=== PATIENT | female | born 1950 | race Caucasian/White ===

== ENCOUNTER → 2020-03-02 10:07 | Outpatient (BNVA) | payer MEDICARE, SELFPAY | PROVIDERS: PCP Family Medicine; Referring Provider Family Medicine; Visit Provider Physician Assistant | DX: D50.9 Iron deficiency anemia, unspecified (principal); Z12.11 Encounter for screening for malignant neoplasm of colon; Z79.82 Long term (current) use of aspirin | CPT/HCPCS: Q3014 ==

== ENCOUNTER 2020-11-18 13:37 | Outpatient (REF) | payer MEDICARE, SELFPAY ==
--- NOTE | ~2020-11-18 | MM_ITS ---
EXAMINATION: BONE DENSITOMETRY CLINICAL INDICATION: Osteoporosis. COMPARISON: Baseline BD dated 07/02/2018. TECHNIQUE: Using a [employer] DXA System (software version: 13.1) manufactured by [employer], dual-energy x-ray absorptiometry was performed of the 07/02/2018. The images are of good technical quality. Summary results are attached. FINDINGS: AP SPINE L1-L2 (excluding L3 and L4): The data of L1-L4 has been changed to exclude the L3 and L4 vertebral bodies, because degenerative sclerosis at these levels may cause overestimation of lumbar spine density. Current: BMD 1.470 g/cm2, Z-score 3.1, T-score 2.5, normal, 5.5% increase from baseline (<5% change is not significant). Baseline: BMD 1.394 g/cm2. LEFT FEMUR, NECK: Current: BMD 1.619 g/cm2, Z-score 5.2, T-score 4.2, normal. Baseline: BMD 1.269 g/cm2. LEFT FEMUR, TOTAL: Current: BMD 1.488 g/cm2, Z-score 4.6, T-score 3.8, normal, 0.9% increase from baseline (<5% change is not significant). Baseline: BMD 1.474 g/cm2. IDENTIFIED RISK FACTORS: Recurrent falls, low calcium intake, menopause. HISTORY OF FRACTURE: None listed. MEDICATIONS: Calcium supplements or multivitamin, vitamin D. MM/XR DEXA axial skeleton IMPRESSION: 1. DIAGNOSIS: Normal bone density based on the lowest T-score value of 2.5 in the lumbar spine applying World Health Organization criteria. 2. 10-YEAR FRACTURE RISK PREDICTION, FRAX: According to the guidelines, FRAX calculation should only be performed on patients in the osteopenia bone density category. Therefore, FRAX was not performed on this patient. 3. Treatment Recommendations: NOF guidelines recommend consideration for treatment in postmenopausal women and men age 50 and older presenting with the following: -A hip or vertebral (clinical or morphometric) fracture. -T-score less than or equal to -2.5 at the femoral neck or spine after appropriate evaluation to exclude secondary causes. -Low bone mass at the hip or spine and a 10-year fracture probability by FRAX of greater than or equal to 3% for hip fracture or greater than or equal to 20% for major osteoporotic fracture based on the [place] adapted WHO algorithm. 4. Other Recommendations: All treatment decisions require clinical judgment and consideration of individual patient factors, including patient preferences, comorbidities, previous drug use, risk factors not captured in the FRAX model (e.g. frailty, falls, vitamin D deficiency, increased bone turnover, interval significant decline in bone density) and possible under or overestimation of fracture risk by FRAX. FUTURE SCAN RECOMMENDATION: People with diagnosed cases of osteoporosis or at high risk for fracture should have regular bone mineral density tests. For patients eligible for Medicare, routine testing is allowed once every 2 years. The testing frequency can be increased to one year for patients who have rapidly progressing disease, those who are receiving or discontinuing medical therapy to restore bone mass, or have additional risk factors.
--- NOTE | ~2020-11-18 | MM_ITS ---
EXAMINATION: MM SCREENING DIGITAL BREAST TOMOSYNTHESIS, BILATERAL CLINICAL INFORMATION: Screening. Asymptomatic. The lifetime risk of breast cancer based on the Tyrer-Cuzick Model is 3%. COMPARISON: Mammography: 07/10/2018, 01/31/2017 TECHNIQUE: Digital breast tomosynthesis is performed in both the craniocaudal and mediolateral oblique views along with computer-aided detection (CAD). Synthesized 2D images are generated from the tomosynthesis. FINDINGS: There are scattered areas of fibroglandular density (ACR BI-RADS breast composition Category b). There is no interval mass or architectural abnormality or developing density. There are scattered bilateral isolated and small groups of punctate round calcifications. Axillary nodes are stable. The skin contours are smooth. There are no significant changes from prior studies. MM/MM tomosynthesis screening BI IMPRESSION: No mammographic evidence of malignancy. ASSESSMENT: BI-RADS 2: Benign RECOMMENDATION: Routine annual mammography screening. This patient's information was entered into a reminder system with a target due date for their next mammogram.
== END 2020-11-18 13:38 | disposition home or self-care (01) ==
LOC: HO.MAMMO 13:37
PROVIDERS: Visit Provider Internal Medicine
DX: Z12.31 Encounter for screening mammogram for malignant neoplasm of breast (principal); Z13.820 Encounter for screening for osteoporosis; E58 Dietary calcium deficiency; Z91.81 History of falling; Z78.0 Asymptomatic menopausal state
CPT/HCPCS: 77063; 77067; 77080

== ENCOUNTER 2022-01-05 13:42 | Outpatient (REF) | payer MEDICARE, SELFPAY ==
--- NOTE | ~2022-01-05 | MR_ITS ---
EXAMINATION: MR LUMBAR SPINE WITHOUT CONTRAST CLINICAL INFORMATION: Low back pain with sciatica. COMPARISON: Lumbar spine MRI 10/15/2017. TECHNIQUE: MRI of the lumbar spine was obtained using routine sequences without contrast. FINDINGS: There is slight grade 1 anterolisthesis of L4 on L5. Alignment is otherwise normal. Vertebral heights are preserved. No acute bone marrow signal changes. There is disc desiccation at multiple levels without substantial loss of intervertebral disc height. The tip of the conus medullaris is located at L1-L2. No mass effect on the conus. Visualized distal cord signal intensity is normal. At L1-L2 the annular contour is normal. No canal stenosis. No mass effect on the traversing or foraminal nerve roots. At L2-L3 the annular contour is normal. Mild bilateral facet degenerative change. No canal stenosis. No mass effect on the traversing or foraminal nerve roots. At L3-L4 there is a slightly bulging disc. Bilateral facet degenerative change. Mild canal stenosis. No mass effect on the traversing or foraminal nerve roots. At L4-L5 there is a pseudodisc bulge. Advanced bilateral facet degenerative change. Moderate canal stenosis. Subarticular zone narrowing causes abutment of both traversing L5 nerve roots. No foraminal nerve root compression. At L5-S1 there is a slightly bulging disc. Advanced bilateral facet degenerative change. No canal stenosis. The mass effect on the left L5 foraminal nerve root. Limited visualization of the retroperitoneal anatomy reveals no abnormal finding. Psoas and paraspinal muscle groups are symmetric. MR/MR lumbar spine wo con IMPRESSION: Lumbar spine with slight grade 1 anterolisthesis of L4 on L5 related to advanced facet degenerative changes at this level. Moderate canal stenosis at L4-L5 and mild canal stenosis at L3-L4. A bulging disc in conjunction with facet degenerative change at L5-S1 causes moderate compression of the left L5 foraminal nerve roots. There is also subarticular zone narrowing at the level of L4-L5 causing abutment of both traversing L5 nerve roots.
== END 2022-01-05 13:43 | disposition home or self-care (01) ==
LOC: HO.MRI 13:42
PROVIDERS: Visit Provider Internal Medicine
DX: M54.41 Lumbago with sciatica, right side (principal)
CPT/HCPCS: 72148

== ENCOUNTER 2022-12-26 13:40 | Outpatient (REF) | payer OTHER, SELFPAY ==
--- NOTE | ~2022-12-26 | MM_ITS ---
EXAMINATION: MM SCREENING DIGITAL BREAST TOMOSYNTHESIS, BILATERAL CLINICAL INFORMATION: Screening. Asymptomatic. COMPARISON: Mammography: This study is compared with prior exams dating back to 2017. TECHNIQUE: Digital breast tomosynthesis is performed in both the craniocaudal and mediolateral oblique views along with computer-aided detection (CAD). Synthesized 2D images are generated from the tomosynthesis. FINDINGS: The breasts are almost entirely fatty (ACR BI-RADS breast composition Category a). There are no significant masses, abnormal calcifications, or other abnormalities. MM/MM tomosynthesis screening BI IMPRESSION: No mammographic evidence of malignancy. ASSESSMENT: BI-RADS BI-RADS 1 - Negative RECOMMENDATION: Routine annual mammography screening. 1 year F/U This examination should not preclude the clinical evaluation of a suspicious palpable abnormality. This patient's information was entered into a reminder system with a target due date for their next mammogram.
== END 2022-12-26 13:41 | disposition home or self-care (01) ==
LOC: HO.MAMMO 13:40
PROVIDERS: PCP Internal Medicine; Visit Provider Internal Medicine
DX: Z12.31 Encounter for screening mammogram for malignant neoplasm of breast (principal)
CPT/HCPCS: 77063; 77067

== ENCOUNTER → 2022-12-26 13:45 | Outpatient (BNV) | payer OTHER, SELFPAY | PROVIDERS: PCP Internal Medicine; Visit Provider Radiology Diagnostic Radiology | DX: Z12.31 Encounter for screening mammogram for malignant neoplasm of breast (principal) | CPT/HCPCS: 77063; 77067 ==

== ENCOUNTER 2023-02-20 09:09 | Outpatient (REF) | payer OTHER, SELFPAY ==
[2023-02-20 15:17] LABS: Alanine Aminotransferase 16 U/L (0-31); Albumin Level 3.8 g/dL (3.5-5.0); Alkaline Phosphatase 76 U/L (39-117); Anion Gap 15 (12-20); Aspartate Amino Transferase 21 U/L (5-31); Bilirubin Total 0.5 mg/dL (0.0-1.0); Blood Urea Nitrogen 15 mg/dL (9-16); Calcium 9.1 mg/dL (8.4-10.2); Carbon Dioxide 29 mmol/L (22-29); Chloride 99 mmol/L (96-108); Cholesterol 91 mg/dL (<200); Estimated Glomerular Filt Rate > 60; Glucose Fasting 113 mg/dL (60-99); HDL Cholesterol 36 mg/dL (>40); LDL Cholesterol Calculated 38 mg/dL (<100); Potassium 3.5 mmol/L (3.3-5.1); Sodium 139 mmol/L (135-145); Total Protein 7.6 g/dL (6.5-8.0); Triglycerides 87 mg/dL (<150)
[2023-02-20 15:26] LABS: Estimated Average Glucose 148 mg/dL; Hemoglobin A1c % 6.8 % (<6.0)
[2023-02-21 03:10] LABS: ~HepC Num1 0.11 S/CO (0.00-0.79); ~Hepatitis C Antibody Nonreactive (Nonreactive)
== END 2023-02-20 09:10 | disposition home or self-care (01) ==
LOC: HO.CHCLDS 09:09
PROVIDERS: Visit Provider Internal Medicine
DX: E11.9 Type 2 diabetes mellitus without complications (principal)
CPT/HCPCS: 36415; 80053; 80061; 83036; 86803

== ENCOUNTER 2023-09-12 10:17 | Outpatient (REF) | payer OTHER, SELFPAY ==
[2023-09-12 15:05] LABS: MANUAL DIFF FLAG NO
[2023-09-12 15:09] LABS: Basophils Percent Auto 0.7 % (0-2); Eosinophils Absolute Auto 0.2 X10*3/uL (0.0-0.4); Eosinophils Percent Auto 2.6 % (0-4); Hematocrit 43.3 % (37.0-47.0); Hemoglobin 13.4 g/dl (12.0-16.0); Imm Gran Abs Auto 0.02 X10*3/uL (0.00-0.03); Imm Gran Pct Auto 0.3 % (0.0-0.4); Lymphocytes Percent Auto 33.3 % (20-40); Mean Corpuscular HGB Conc 30.9 g/dl (31.0-35.0); Mean Corpuscular Hemoglobin 25.7 pg (27.0-33.0); Mean Platelet Volume 12.4 fL (9.4-12.3); Monocytes Absolute Auto 0.6 X10*3/uL (0.1-1.2); Monocytes Percent Auto 9.8 % (2-11); Neutrophils Absolute Auto 3.2 x10*3/uL (2.0-8.3); Neutrophils Percent Auto 53.3 % (45-73); Platelet Count 182 X10*3/uL (160-400); Red Blood Count 5.22 X10*6/uL (4.20-5.50); Red Cell Distribution Width 15.1 % (11.0-16.0)
[2023-09-12 15:34] LABS: Alanine Aminotransferase 20 U/L (0-31); Alkaline Phosphatase 76 U/L (39-117); Anion Gap 15 (12-20); Aspartate Amino Transferase 23 U/L (5-31); Bilirubin Total 0.7 mg/dL (0.0-1.0); Blood Urea Nitrogen 14 mg/dL (9-16); Calcium 9.9 mg/dL (8.4-10.2); Carbon Dioxide 29 mmol/L (22-29); Chloride 99 mmol/L (96-108); Cholesterol 99 mg/dL (<200); Estimated Glomerular Filt Rate > 60; Glucose Random 124 mg/dL (60-115); HDL Cholesterol 37 mg/dL (>40); LDL Cholesterol Calculated 36 mg/dL (<100); Sodium 139 mmol/L (135-145); Total Protein 7.9 g/dL (6.5-8.0); Triglycerides 134 mg/dL (<150)
== END 2023-09-12 10:18 | disposition home or self-care (01) ==
LOC: HO.CHCLDS 10:17
PROVIDERS: Visit Provider Internal Medicine
DX: E11.9 Type 2 diabetes mellitus without complications (principal)
CPT/HCPCS: 36415; 80053; 80061; 85025

== ENCOUNTER 2024-06-09 11:33 | Outpatient (REF) | payer OTHER, SELFPAY ==
--- OUTSIDE RECORDS SUMMARY | 2024-06-09 13:47 | XMS_ITS ---
Author Name MS. Shyanne Alexandra APRN Address [address] [place] [address] Phone [phone] [facility] Care Team Providers Care Parer Name Role Phone Mindi Alexandra Unavailable [phone] Reason for Referral Not Available Allergies, adverse reactions, alerts Allergen Type Reaction Severity Status Onset Date Vicodin Allergy to substance (disorder) Speedy, manic Ann re Active N/A Penicillin Allergy to substance (disorder) Rash, hives Sever e Active N/A History of medication use Medication Class Instructions Start Date End Date FeroSul 325 (65 Fe) MG Tab TAKE ONE TABL ET BY MOUTH EVERY DAY 2021-06-27 No Data Available Gabapentin 800 mg Tab TAKE ONE TABLET BY MOUTH THREE TIMES DAILY 2021-04-27 2022-01-31 metFORMIN ER 500 mg Tab ER 24hr TAKE TWO TABLET TWICE DAILY WITH MEALS 2021-03-24 No Data Available Arthritis Pain Relief 650 mg Tab ER TAKE ONE TABLET EVERY 8 HOURS NEEDED 2021-03-23 No Data Available Amitriptyline 50 mg Tab TAKE ONE TABLET AT BEDTIME 04-18-24 No Data Available Aspirin Low Dose 81 mg Tab delayed rel TAKE ONE TABLET BY MOUTH EVERY DAY (BLOOD) 2021-03-07 No Data Available Losartan Potassium-HCTZ 100/12.5 mg Tab TAKE ONE TABLET BY MOUTH EVERY DAY (FOR BLOOD PRESSURE) 2021-07-18 No Data Available Clotrimazole Anti-Fungal 1 % Crm APPLY TO AFFECTED AREA(S) AND SURROUNDING AREA(S) TWICE DAILY IN THE MORNING AND EVENING 2021-08-18 No Data Available Lidocaine 5 % Oint APPLY SPARINGLY TO T HE AFFECTED AREA(s) THREE TIMES DAILY 2021-07-19 No Data Available Jardiance 25 mg Tab TAKE ONE TABLET EVER Y MORNING 2021-08-24 2024-04-14 OneTouch Verio Strip TEST BLOOD SUGAR TH REE TIMES DAILY 2021-03-24 No Data Available Methocarbamol 750 mg Tab TAKE ONE TABLET THREE TIMES DAILY 2021-10-17 No Data Available Naproxen 500 mg Tab TAKE ONE TABLET TWIC E DAILY WITH FOOD 2021-10-17 No Data Available Pregabalin 50 mg Cap TAKE ONE CAPSULE TH REE TIMES DAILY (PAIN DE [place] NERVIOS) 2021-10-17 No Data Available Atorvastatin Calcium 20 mg Tab TAKE ONE TABLET BY MOUTH EVERY DAY (CHOLESTEROL) 2021-07-13 No Data Available Omeprazole 20 mg Cap delayed rel 1 tablet by mouth once daily 2022-01-31 No Data Available Aspirin EC 81 mg Tab delayed rel take 1 tablet by mouth daily 2022-01-31 No Data Available Tylenol 8hr Arthritis Pain 650 mg Tab ER 1 tablet PO 3 times a day PRN pain 2022-01-31 No Data Available Benzonatate 100 mg Cap Take 1 tablet thr ee times daily as needed for cough. 2022-01-31 2023-06-25 Naproxen 500 mg Tab 1 tablet by mouth tw ice a day as needed for pain 2022-01-31 2023-06-25 Allopurinol 300 mg Tab 1 tablet orally once daily 20212023-06-25 Lidocaine 5 % Crm apply to pain area t wice daily PRN 2022-01-31 No Data Available blood pressure test kit-larg e cuff Check blood pressure on arm as directed IN THE MORNING 2022-08-28 No Data Available hydrOXYzine 25 mg Tab TAKE ONE TABLET TH REE TIMES DAILY NEEDED FOR ANXIETY 2023-01-30 No Data Available Lidocaine 5 % Oint 1 application topica lly to affected area 3 times per day as needed 2023-06-25 No Data Available Problem List Problem Status Onset Date Resolved Date Major depressive disorder, r ecurrentGAD (generalized anxiety disorder) Active 2023-06-18 N/A GERD (gastroesophageal reflux disease) Active 30-06-17 N/A Morbid (severe) obesity due to excess caloriesSleep apnea Active 2022-01-31 N/A Sinus congestion Active 2024-04-14 N/A 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 facilities and other health care Active 2024-04-14 N/A Encounters Encounters Type Facility Date of Service Diagnosis/Co mplaint New patient,40-59min; chronic exacerbation, 2 stable chronic or 1 acute illness add add modifier 95 for video (do not use for phone, instead use [id number]) [facility]20[place] Type 2 diabetes mellitus wit h diabetic polyneuropathyUnspecified mononeuropathy of bilateral lower limbsPersonal history of diseases of the mo sys and conn tissBody mass index (BMI) 45.0-49.9, adultMorbid (severe) obesity due to excess caloriesEssential (primary) hypertension New patient,40-59min; chronic exacerbation, 2 stable chronic or 1 acute illness add add modifier 95 for video (do not use for phone, instead use 78986-88) [facility] 01[place]20[place] New patient,40-59min; chronic exacerbation, 2 stable chronic or 1 acute illness add add modifier 95 for video (do not use for phone, instead use 00925-99) [facility]20[place] New patient,40-59min; chronic exacerbation, 2 stable chronic or 1 acute illness add add modifier 95 for video (do not use for phone, instead use 13884-63) [facility]20[place] New patient,40-59min; chronic exacerbation, 2 stable chronic or 1 acute illness add add modifier 95 for video (do not use for phone, instead use 27273-44) [facility]20[place] New patient,40-59min; chronic exacerbation, 2 stable chronic or 1 acute illness add add modifier 95 for video (do not use for phone, instead use 58029-88) [facility]20[place] New patient,40-59min; chronic exacerbation, 2 stable chronic or 1 acute illness add add modifier 95 for video (do not use for phone, instead use 57015-88) [facility]20[place] Estab. patient 30-39min; chronic exacerbation, 2 stable chronic or 1 acute illness add add modifier 95 for video, (do not use for phone, instead use 10050-70) [facility]/2022 Morbid (severe) obesity due to excess caloriesBody mass index (BMI) 40.0-44.9, adultType 2 diabetes mellitus with diabetic polyneuropathyType 2 diabetes mellitus with other specified complicationHyperlipidemia, unspecifiedEssential (primary) hypertensionPersonal history of diseases of the ms sys and conn tiss Estab. patient 30-39min; chronic exacerbation, 2 stable chronic or 1 acute illness add add modifier 95 for video, (do not use for phone, instead use 91790-24) [facility]20[place] Estab. patient 30-39min; chronic exacerbation, 2 stable chronic or 1 acute illness add add modifier 95 for video, (do not use for phone, instead use 97148-87) [facility]/20[place] Estab. patient 30-39min; chronic exacerbation, 2 stable chronic or 1 acute illness add add modifier 95 for video, (do not use for phone, instead use 30368-31) [facility]/20[place] Estab. patient 30-39min; chronic exacerbation, 2 stable chronic or 1 acute illness add add modifier 95 for video, (do not use for phone, instead use 84473-90) [facility]/20[place] Estab. patient 30-39min; chronic exacerbation, 2 stable chronic or 1 acute illness add add modifier 95 for video, (do not use for phone, instead use 77632-12) [facility]/2022 Estab. patient 30-39min; chronic exacerbation, 2 stable chronic or 1 acute illness add add modifier 95 for video, (do not use for phone, instead use 18897-39) [facility]03/2022 Estab. patient 30-39min; chronic exacerbation, 2 stable chronic or 1 acute illness add add modifier 95 for video, (do not use for phone, instead use 76841-53) [facility] 06[place]25/2023 Type 2 diabetes mellitus wit h diabetic polyneuropathyType 2 diabetes mellitus with other specified complicationHyperlipidemia, unspecifiedMajor depressive disorder, recurrent, unspecifiedGeneralized anxiety disorderEssential (primary) hypertensionGastro-esophageal reflux disease without esophagitisMorbid (severe) obesity due to excess caloriesOther problems related to medical facilities and other health careBody mass index (bmi) 39.0-39.9, adult Estab. patient 30-39min; chronic exacerbation, 2 stable chronic or 1 acute illness add add modifier 95 for video, (do not use for phone, instead use 14363-81) [facility] 06[place]25/2023 Estab. patient 30-39min; chronic exacerbation, 2 stable chronic or 1 acute illness add add modifier 95 for video, (do not use for phone, instead use 26023-31) [facility], ([place]) 06/25/2023 Estab. patient 30-39min; chronic exacerbation, 2 stable chronic or 1 acute illness add add modifier 95 for video, (do not use for phone, instead use 01374-78) [facility], ([place]) 06/25/2023 Estab. patient 30-39min; chronic exacerbation, 2 stable chronic or 1 acute illness add add modifier 95 for video, (do not use for phone, instead use 84599-55) [facility], ([place]) 06/25/2023 Estab. patient 30-39min; chronic exacerbation, 2 stable chronic or 1 acute illness add add modifier 95 for video, (do not use for phone, instead use 47165-04) [facility], ([place]) 06/25/2023 Estab. patient 30-39min; chronic exacerbation, 2 stable chronic or 1 acute illness add add modifier 95 for video, (do not use for phone, instead use 58446-09) [facility] ([place]) 06/25/2023 Estab. patient 30-39min; chronic exacerbation, 2 stable chronic or 1 acute illness add add modifier 95 for video, (do not use for phone, instead use 96726-23) [facility] ([place]) 06[place]25/2023 Estab. patient 30-39min; chronic exacerbation, 2 stable chronic or 1 acute illness add add modifier 95 for video, (do not use for phone, instead use 86828-05) [facility] ([place]) 06[place]25/2023 Estab. patient 30-39min; chronic exacerbation, 2 stable chronic or 1 acute illness add add modifier 95 for video, (do not use for phone, instead use 11510-35) [facility]20[place] Estab. patient 30-39min; chronic exacerbation, 2 stable chronic or 1 acute illness add add modifier 95 for video, (do not use for phone, instead use 57873-71) [facility] 04[place]14/2024 Type 2 diabetes mellitus wit h diabetic polyneuropathyType 2 diabetes mellitus with other specified complicationHyperlipidemia, unspecifiedMajor depressive disorder, recurrent, unspecifiedGeneralized anxiety disorderEssential (primary) hypertensionGastro-esophageal reflux disease without esophagitisMorbid (severe) obesity due to excess caloriesSleep apnea, unspecifiedNasal congestionOther problems related to medical facilities and other health care Estab. patient 30-39min; chronic exacerbation, 2 stable chronic or 1 acute illness add add modifier 95 for video, (do not use for phone, instead use 78962-24) [facility] ([place]) 04[place]14[place]20[place] Estab. patient 30-39min; chronic exacerbation, 2 stable chronic or 1 acute illness add add modifier 95 for video, (do not use for phone, instead use 59613-92) [facility] 04[place]14/[place] Estab. patient 30-39min; chronic exacerbation, 2 stable chronic or 1 acute illness add add modifier 95 for video, (do not use for phone, instead use 26761-11) [facility] ([place]) 04[place]14/2024 Estab. patient 30-39min; chronic exacerbation, 2 stable chronic or 1 acute illness add add modifier 95 for video, (do not use for phone, instead use 46620-59) [facility] ([place]) 04[place]14/20[place] Estab. patient 30-39min; chronic exacerbation, 2 stable chronic or 1 acute illness add add modifier 95 for video, (do not use for phone, instead use 25124-62) [facility] ([place] 04[place]14/2024 Estab. patient 30-39min; chronic exacerbation, 2 stable chronic or 1 acute illness add add modifier 95 for video, (do not use for phone, instead use 47714-13) [facility] ([place]) 04[place]14/2024 Estab. patient 30-39min; chronic exacerbation, 2 stable chronic or 1 acute illness add add modifier 95 for video, (do not use for phone, instead use 54054-12) [facility] ([place]) 04/14/2024 Estab. patient 30-39min; chronic exacerbation, 2 stable chronic or 1 acute illness add add modifier 95 for video, (do not use for phone, instead use 29971-22) [facility] 04[place]14/20[place] Estab. patient 30-39min; chronic exacerbation, 2 stable chronic or 1 acute illness add add modifier 95 for video, (do not use for phone, instead use 10462-47) [facility] 04[place]2024 Vital Signs Date of Collection Vitals 2022-01-31 11:35:58 Height - 149.86 cmWe ight - 106.6 kgBody Mass Index (BMI) - 47.46 kg/m2 2022-11-03 09:38:01 Height - 157.48 cmWe ight - 104.33 kgBody Mass Index (BMI) - 42.07 kg/m2 2023-06-25 08:36:38 Weight - 97.52 kgBod y Mass Index (BMI) - 39.32 kg/m2BP Diastolic - 86.0 mm[Hg]BP Systolic - 119.0 mm[Hg]Pain Scale - 0.0 {score} 2024-04-14 05:04:55 Height - 149.86 cmWe ight - 102.51 kgBody Mass Index (BMI) - 45.65 kg/m2BP Diastolic - 89.0 mm[Hg]BP Systolic - 123.0 mm[Hg]Pain Scale - 0.0 {score} Social History Social History Social History Observation Description Effec tive Time Current Smoking Status Former smoker 3 Sex Female History of Procedures Procedures Service Procedure code Service date Servicing provider Phone# New patient,40-59min; chronic exacerbation, 2 stable chronic or 1 acute illness add add modifier 95 for video (do not use for phone, instead use 10400-35) 77547 2022-01-31 No Data Available No Data Availa ble Medication List Documented (1159F) 1159F 2022-01-31 No Data Available No Data Molly ilable Medication Review by prescribing provider or pharmacist documented (1160F) 1160F 2022-01-31 No Data Available No Data Molly ilable Functional Status Assessed (1170F) 1170F 2022-01-31 No Data Available No Data Avail able Advance Care Directive Advance care planning discussion documented in the medical record (1158F) 1158F 2022-01-31 No Data Available No Data Availa ble BMI obtained (3008F) 3008F 2022-01-31 No Data Availab le No Data Available Pain Assessment - Pain Documented on a Pain Scale (1125F) 1125F 2022-01-31 No Data Available No Data Molly ilable Estab. patient 30-39min; chronic exacerbation, 2 stable chronic or 1 acute illness add add modifier 95 for video, (do not use for phone, instead use 16785-33) 03223 2022-11-03 No Data Available No Data Availa ble Pain Assessment - Pain Documented on a Pain Scale (1125F) 1125F 2022-11-03 No Data Available No Data Molly ilable Functional Status Assessed (1170F) 1170F 2022-11-03 No Data Available No Data Avail able Medication List Documented (1159F) 1159F 2022-11-03 No Data Available No Data Molly ilable Medication Review by prescribing provider or pharmacist documented (1160F) 1160F 2022-11-03 No Data Available No Data Molly ilable BMI obtained (3008F) 3008F 2022-11-03 No Data Availab le No Data Available Advance Care Directive Advance care planning discussion documented in the medical record (1158F) 1158F 2022-11-03 No Data Available No Data Availa ble Estab. patient 30-39min; chronic exacerbation, 2 stable chronic or 1 acute illness add add modifier 95 for video, (do not use for phone, instead use 97614-23) 27402 2023-06-25 No Data Available No Data Availa ble Medication List Documented (1159F) 1159F 2023-06-25 No Data Available No Data Molly ilable Medication Review by prescribing provider or pharmacist documented (1160F) 1160F 2023-06-25 No Data Available No Data Molly ilable Pain Assessment - NO pain present (1126F) 1126F 2023-06-25 No Data Available No Data A vailable BMI obtained (3008F) 3008F 2023-06-25 No Data Availab le No Data Available Advance Care Directive Advance care planning discussion documented in the medical record (1158F) 1158F 2023-06-25 No Data Available No Data Availa ble Advance care planning discussed and documented ? advance care plan or surrogate decision-maker was documented in the medical record. (1123F) 1123F 2023-06-25 No Data Available No Data Availa ble SBP < 130 (3074F) 3074F 2023-06-25 No Data Available No Data Available DBP 80-89 (3079F) 3079F 2023-06-25 No Data Available No Data Available Functional Status Assessed (1170F) 1170F 2023-06-25 No Data Available No Data Avail able Estab. patient 30-39min; chronic exacerbation, 2 stable chronic or 1 acute illness add add modifier 95 for video, (do not use for phone, instead use 86335-63) 35010 2024-04-14 No Data Available No Data Availa ble Medication List Documented (1159F) 1159F 2024-04-14 No Data Available No Data Molly ilable Medication Review by prescribing provider or pharmacist documented (1160F) 1160F 2024-04-14 No Data Available No Data Molly ilable Functional Status Assessed (1170F) 1170F 2024-04-14 No Data Available No Data Avail able BMI obtained (3008F) 3008F 2024-04-14 No Data Availab le No Data Available Advance Care Directive Advance care planning discussion documented in the medical record (1158F) 1158F 2024-04-14 No Data Available No Data Availa ble Advance care planning discussed and documented ? advance care plan or surrogate decision-maker was documented in the medical record. (1123F) 1123F 2024-04-14 No Data Available No Data Availa ble Pain Assessment - Pain Documented on a Pain Scale (1125F) 1125F 2024-04-14 No Data Available No Data Molly ilable SBP < 130 (3074F) 3074F 2024-04-14 No Data Available No Data Available DBP 80-89 (3079F) 3079F 2024-04-14 No Data Available No Data Available Functional Status Functional Category Effective Dates ADL Eating: Independent; Amb ulation: Some Help Needed; Dressing: Some Help Needed; Bathing: Some Help Needed; Toileting: Some Help Needed 2022-01-31 IADL Shopping: Some Help Nee ded; Housekeeping: Some Help Needed; Meal Prep: Some Help Needed; Medications Management: Some Help Needed 2022-01-31 Falls in last 6 Months: No 2022-01-31 Mental Status Status Date Cognitive Status: Alert and Oriented to Person, Place, and Time 2023-06-25 Assessments Date of Service Assessments 2022-11-03 09:38:01 Hx of goutMorbid (se pj) obesity due to excess caloriesEssential hypertensionType 2 diabetes mellitus with complications: diabetic polyneuropathy, HLD 2023-06-25 08:36:38 Type 2 diabetes ton itus with complications: diabetic polyneuropathy, HLDMajor depressive disorder, recurrentGAD (generalized anxiety disorder)Essential hypertensionGERD (gastroesophageal reflux disease)Morbid (severe) obesity due to excess caloriesBody mass index [BMI] 39.0-39.9, adultOther problems related to medical facilities and other health care 2024-04-14 05:04:55 Type 2 diabetes ton itus with complications: diabetic polyneuropathy, HLDMajor depressive disorder, recurrentGAD (generalized anxiety disorder)Essential hypertensionGERD (gastroesophageal reflux disease)Morbid (severe) obesity due to excess caloriesSleep apneaSinus congestionOther problems related to medical facilities and other health care Plan of Care Date of Service Plans 2022-01-31 11:35:58 Medication Review by prescribing provider or pharmacist documented (1160F)Medication List Documented (1159F)Functional Status Assessed (1170F)Advance Care Directive Advance care planning discussion documented in the medical record (1158F)BMI obtained (3008F)Pain Assessment - Pain Documented (1125F)Televideo new patient,40-59min; chronic exacerbation, 2 stable chronic or 1 acute illness add modifier 95Continue to see PCP. Follow-up with [facility] as needed for any acute or disease education needs that may arise. 2022-11-03 09:38:01 Medication Review by prescribing provider or pharmacist documented (1160F)Medication List Documented (1159F)Functional Status Assessed (1170F)Advance Care Directive Advance care planning discussion documented in the medical record (1158F)BMI obtained (3008F)Televideo 30-39min; chronic exacerbation, 2 stable chronic or 1 acute illness add modifier 95Advance care planning discussed and documented ? advance care plan or surrogate decision-maker was documented in the medical record. (1123F)Pain Assessment - Pain Documented (1125F)Advance care planning discussed and documented in the medical record ? beneficiary/patient did not wish to or was unable to provide an advance care plan or name a surrogate decision-maker. (1124F)Continue to see PCP. Follow-up with [facility] as needed for any acute or disease education needs that may arise.Allopurinol for preventionNaproxen PRNStableBMI: 42.07Patient has lost weight since last appt with [facility]. Discussed continual dietary and exercise interventions to further promote a healthy weight loss.StableLosartan-HCTZContinue taking medicaiton as prescribed, low salt diet, exercise, monitor BP routinely, and continue f/u care and monitoring with PCP every 3-6 months.JardianceMetforminAtorvastatin Pregabalin for painTylenol PRNNaproxen PRNLidocaine topical creamAdvised to mention to PCP that medication (except lidocaine) is not sufficient, and to ask him to help more with pain control. If PCP does not help, we can help manage or refer.08/09/22: A1c 7.7, serum crea 1.25, EGFR 46 2023-06-25 08:36:38 Medication Review by prescribing provider or pharmacist documented (1160F)Medication List Documented (1159F)Functional Status Assessed (1170F)Advance Care Directive Advance care planning discussion documented in the medical record (1158F)BMI obtained (3008F)SBP < 130 (3074F)DBP 80-89 (3079F)Televideo 30-39min; chronic exacerbation, 2 stable chronic or 1 acute illness add modifier 95Advance care planning discussed and documented ? advance care plan or surrogate decision-maker was documented in the medical record. (1123F)Pain Assessment - NO pain documented (1126F)Continue to see PCP. Follow-up with [facility] as needed for any acute or disease education needs that may arise.Diabetes: Jardiance, MetforminHyperlipidemia: Atorvastatin Polyneuropathy: Pregabalin, Lidocaine topical creamAdvised on diabetic diet including avoiding foods with high sugar content, high carbohydrates or starchy foods like rice, potatoes. Advised to eat smaller portions with healthy snacks.Continue to follow up with PCP.RX: Amitriptyline, Hydroxyzine Notify provider with any changes in behavior, difficulty sleeping, or new/worsening depressive symptoms.Continue to follow up with PCP.StableRX: Losartan-HCTZContinue taking medicaiton as prescribed, low salt diet, exercise, monitor BP routinely, and continue f/u care and monitoring with PCP every 3-6 months.RX: Omeprazole Limit high fat foods, deep fried foods, spicy foods. Also avoid eating and then lying down flat. Try to stay up 2-3 hours after eating minimum to avoid the risk of indigestion.Continue to follow up with PCP.BMI: 39.32Recommend Lifestyle Modifications.CONTINGENCY PLANFall Member to call for the following symptoms: Fall Planned intervention: Encourage extra fluid intake Assess for change in mental status and provide reassurance if none (patient's Baseline is AOOx3) Review importance of sitting for two to three minutes prior to standing after laying downAt least 50% of time spent counseling patient, discussing diagnosis, treatment plan, compliance, and coordinating follow up care. 2024-04-14 05:04:55 Televideo 30-39min; chronic exacerbation, 2 stable chronic or 1 acute illness add modifier 95Functional Status Assessed (1170F)BMI obtained (3008F)Advance Care Directive Advance care planning discussion documented in the medical record (1158F)Advance care planning discussed and documented ? advance care plan or surrogate decision-maker was documented in the medical record. (1123F)SBP < 130 (3074F)DBP 80-89 (3079F)Pain Assessment - Pain Documented (1125F)Continue to see PCP. Follow-up with [facility] as needed for any acute or disease education needs that may arise.Diabetes: MetforminLast A1C: does not know, has appt of 04/23/24 (last bloodwork about 3.5 months ago per daughter) BG was yesterday 98, highest 112 Hyperlipidemia: Atorvastatin Polyneuropathy: Pregabalin, Lidocaine topical creamAdvised on diabetic diet including avoiding foods with high sugar content, high carbohydrates or starchy foods like rice, potatoes. Advised to eat smaller portions with healthy snacks.Continue to follow up with PCP.RX: Amitriptyline, Hydroxyzine Notify provider with any changes in behavior, difficulty sleeping, or new/worsening depressive symptoms.Continue to follow up with PCP.StableRX: Losartan-HCTZHas a BP machine BP 123/89Continue taking medicaiton as prescribed, low salt diet, exercise, monitor BP routinely, and continue f/u care and monitoring with PCP every 3-6 months.RX: Omeprazole Limit high fat foods, deep fried foods, spicy foods. Also avoid eating and then lying down flat. Try to stay up 2-3 hours after eating minimum to avoid the risk of indigestion.Continue to follow up with PCP.BMI: 45.65 Recommend Lifestyle Modifications. States she has been diagnosed with sleep apnea but states has been having issues with getting the CPAP States PCP is working on itbeen having runny nose, and dry cough- 2 days ago has not seen her doctor about it taking tylenol cold medicine has vicks vaporub, humidifer Advised to contact us or PCP if s/s gets worstDid not want us to send anythingPSYCH CONTINGENCY PLANLast updated: 04/14/2024Member to call for the following symptoms: Anxiety/ Insomnia/ Panic attacks/ Refusing/forgetting to take medications / Restlessness/ Suicidal thoughts/ Worsening paranoia or delusions Planned intervention: Contact mental health professional:/ Transfer member to [address] [place] [address]/ Trazodone 50mg at bedtime/ Hydroxyzine (Vistaril) 25mg PO q6h PRN anxiety/ Remind member of breathing exercises/ Encourage member to journal feelings/ Remind member of personal goal:/ Encourage use of home medication:/ Limit extra stimulation Goals Date Goal 2022-01-31 Remember to 2022-01-31 Call me if 2022-01-31 Keep it up 2022-11-03 Remember to implemen t low carb and low salt diet and monitor BG routinely. 2022-11-03 Contact us if develo ping emergent HTN, worsening pain, HHS or DKA. 2022-11-03 Continue taking medi cations as prescribed, healthy weight loss promotion, and f/u care and monitoring with PCP every 3-6 months. 2023-06-25 Continue taking medi cations as directed and keep all follow up appointments with established PCP and Specialist. 2024-04-14 Continue taking medi cations as directed and keep all follow up appointments with established PCP and Specialist. Health Concerns Date Concern 2024-04-14 Visit completed usin g audio/video.Patient/Guardian agreed to visit via telehealth. Today, patient has chief complaint of: follow up care and comprehensive review.Reviewed Allergies, Medications, Active Medical conditions, past medical/surgical history, Social history. Daughter Annie translating for the patient, . 2024-04-14 Most recent hospital stay(s) or ER visit(s) and precipitating factors: due to chest pains, in February 2024, states all testing was negative was told it was anxiety related, states does not see veterinary assistant- states she was given hydroxyzine 2024-04-14 Open HEDIS Measure yuri young: Yes
--- OUTSIDE RECORDS SUMMARY | 2024-06-09 13:47 | XMS_ITS | Encounter Summary ---
Author Organization [employer] Address [address] [facility] [address]t [place] [address] Care Team Providers Care In House Counsel Name Role Phone Mau Owens MD Primary Care Prov ider Reason for Visit * Reason Comments Med Refill Encounter Details Date Type Department Care Team ([facility] Contact Info) Description 10/04/2023 Refill [facility] CHC MED & PEDS [address] [place] [address] Mau Owens MD [address] [place] [address] Neuropathy Social History Tobacco Use Types Packs/Day Years Used Date Smoking Tobacco: Former Cigarettes 30 1 960 - 1989 Smokeless Tobacco: Never Alcohol Use Standard Drinks/Week Comments Never 0 (1 standard drink = 0.6 oz pur e alcohol) Depression Answer Date Recorded Patient Health Questionnaire-9 Score 2 06/14/2023 Patient Health Questionnaire-9 Score 2 06/14/2023 Last PHQ-9: Questionnaire Data Not on file 0 06/14/2023 Housing Stability Answer Date Recorded What is your housing situation today? I have ajay james 06/14/[address] you li ve. Do you have problems with any of the following? None of the above 06/14/2023 Food Insecurity Answer Date Recorded Within the past 12 months, y ou worried that your food would run out before you got money to buy more: Never True 06/14/2023 Within the past 12 months,th e food you bought just didn't last and you didn't have enough money to get more: Never True 10/2023 Transportation Answer Date Recorded In the past 12 months, has l ack of transportation kept you from medical appts, meetings, work or from getting things needed for daily living? No 06/14/2023 Utilities Answer Date Recorded In the past 12 months, has t he electric, gas, oil or water company threatened to shut off services in your home? No 06/14/2023 Depression Answer Date Recorded Patient Health Questionnaire-2 Score 3 06/14/2023 Comments Unknown Sex and Gender Information Value Date Recorded Sex Assigned at Female 02/06/2022 10:14 AM EDT Legal Sex Female 10:14 AM EDT Gender Identity Female 02/06/2022 10:14 AM EDT Sexual Orientation Straight 01/08/2024 10 :16 AM EDT documented as of this encounter Plan of Treatment Not on file documented as of this encounter Visit Diagnoses Diagnosis Neuropathy Mononeuritis of unspecified site documented in this encounter Additional Health Concerns Assessment Noted Time PHQ-9 Depression Total Score: 2 06/14/19 24 9:41 AM EST documented as of this encounter Care Teams In House Counsel Relationship Specialty Start Date End Date Mau Owens MD [address] [place] [id number] PCP - General Internal Medicine 09/03/19 documented as of this encounter
--- OUTSIDE RECORDS SUMMARY | 2024-06-09 13:48 | XMS_ITS | Encounter Summary ---
Author Organization [employer] Address [address] [facility] [address] [place] [address] Care Team Providers Care Rolling Up Machine Operator Name Role Phone Mau Owens MD Primary Care Prov ider Encounter Details Date Type Department Care Team ([facility] st Contact Info) Description 03/23/2022 Orders Only [facility] CHC MED & PEDS [address] [place], [place] [phone] Neena Aranda LPN Social History Tobacco Use Types Packs/Day Years Used Date Smoking Tobacco: Never Assessed Comments Unknown Sex and Gender Information Value Date Recorded Sex Assigned at Female 02/06/2022 10:14 AM EDT Legal Sex Female 10:14 AM EDT Gender Identity Female 02/06/2022 10:14 AM EDT Sexual Orientation Straight 01/08/2024 10 :16 AM EDT documented as of this encounter Plan of Treatment Not on file documented as of this encounter Visit Diagnoses Not on filedocumented in this encounter Care Teams Rolling Up Machine Operator Relationship Specialty Start Date End Date Mau Owens MD [address] [place] [address] PCP - General Internal Medicine 09/03/19 documented as of this encounter
--- OUTSIDE RECORDS SUMMARY | 2024-06-09 13:48 | XMS_ITS | Encounter Summary ---
Author Organization [employer] Address [address] [facility] 7[address] [place] [address] Care Team Providers Care Certified Driver Examiner Name Role Phone Mau Owens MD Primary Care Prov ider Encounter Details Date Type Department Care Team (Latest Contact Info) Description 05/12/2024 Travel Social History Tobacco Use Types Packs/Day Years Used Date Smoking Tobacco: Former Cigarettes 1 30 1 960 - 1989 Smokeless Tobacco: [...] Diagnoses Not on filedocumented in this encounter Additional Health Concerns Assessment Noted Time PHQ-9 Depression Total Score: 2 06/14/19 24 9:41 AM EST documented as of this encounter Care Teams Certified Driver Examiner Relationship Specialty Start Date End Date Mau Owens MD [address] [place] [id number] PCP - General Internal Medicine 09/03/19 documented as of this encounter
--- OUTSIDE RECORDS SUMMARY | 2024-06-09 13:48 | XMS_ITS | Encounter Summary ---
Author Organization [employer] Address [address] [facility] 7t [place] [address] Care Team Providers Care Packaging Materials Inspector Name Role Phone Mau Owens MD Primary Care Prov ider Encounter Details Date Type Department Care Team (Late st Contact Info) Description 08/14/2022 Orders Only [facility] CHC MED & PEDS [address] [place], [place] [phone] Yudith Almaguer LPN Social History Tobacco Use Types Packs/Day Years Used Date Smoking Tobacco: Never Assessed Depression Answer Date Recorded Patient Health Questionnaire-9 Score 0 05/17/2022 Depression Answer Date Recorded Patient Health Questionnaire-2 Score 0 05/17/2022 Comments Unknown Sex and Gender Information Value [...] Assessment Noted Time PHQ-9 Depression Total Score: 0 05/17/19 23 9:05 AM EST documented as of this encounter Care Teams Packaging Materials Inspector Relationship Specialty Start Date End Date Mau Owens MD [address] [place] [address] PCP - General Internal Medicine 09/03/19 documented as of this encounter
--- OUTSIDE RECORDS SUMMARY | 2024-06-09 13:48 | XMS_ITS | Encounter Summary ---
Author Organization [employer] Address [address] [facility] 7 [place] [address] Care Team Providers Care Astrophysics Professor Name Role Phone Mau Owens MD Primary Care Prov ider Reason for Visit * Reason Comments Follow-up Dm Encounter Details Date Type Department Care Team ([facility] st Contact Info) Description 05/12/2024 3:45 PM EST Office Visit [facility] MED & PEDS [address] [place] [address] Mau Owens MD [address] [place] [address] Severe obesity (CMS/HCC) (Primary Dx); Type 2 diabetes mellitus without complication, without long-term current use of insulin (CMS/HCC); Dietary counseling; Exercise counseling; Hyperlipidemia associated with type 2 diabetes mellitus (CMS/HCC) (CMS/HCC); Primary hypertension Social History Tobacco Use Types Packs/Day Years [...] AM EDT documented as of this encounter Last Filed Vital Signs Vital Sign Reading Time Taken Comments Blood Pressure 135/76 05/12/2024 3:58 PM EST Pulse 90 05/12/2024 3:58 PM EST Temperature 36.6 ??C (97.8 ??F) 05/12/2024 3:58 PM ES T Respiratory Rate 18 05/12/2024 3:58 PM EST Oxygen Saturation 96% 05/12/2024 3:58 PM EST Inhaled Oxygen Concentration - - Weight 101 kg (222 lb 3.2 oz) 05/12/2024 3:58 PM EST Height 151 cm (4' 11.45 ) 05/12/2024 3:58 PM EST Body Mass Index 44.2 05/12/2024 3:58 PM EST documented in this encounter Progress Notes * Mau Pedersne MD - 05/12/2024 3:45 PM EST Subjective Patient ID: Jaz Pedersen is a 73 y.o. female who presents for Follow-up (Dm ). Hypertension This is a chronic problem. The problem is controlled. Pertinent negatives include no chest pain, headaches, palpitations, peripheral edema or shortness of breath. Diabetes She presents for her follow-up diabetic visit. She has type 2 diabetes mellitus. Her disease coursehas been stable. Pertinent negatives for hypoglycemia include no headaches. Pertinent negatives fordiabetes include no chest pain, no foot ulcerations, no polydipsia, no polyphagia and no polyuria. Review of Systems Respiratory: Negative for shortness of breath. Cardiovascular: Negative for chest pain and palpitations. Endocrine: Negative for polydipsia, polyphagia and polyuria. Neurological: Negative for headaches. Objective Physical Exam Constitutional: Appearance: Normal appearance. Cardiovascular: Rate and Rhythm: Normal rate. Heart sounds: No murmur heard. Pulmonary: Effort: Pulmonary effort is normal. No respiratory distress. Breath sounds: No wheezing. Neurological: General: No focal deficit present. Mental Status: She is alert and oriented to person, place, and time. Psychiatric: Mood and Affect: Mood normal. Behavior: Behavior normal. Assessment/Plan Problem List Items Addressed This Visit Primary hypertension Repeated found 135/76, keep low sodium diet, keep bp log, follow up in 3 months, target <130/80 Type 2 diabetes mellitus without complication, without long-term current use of insulin ([facility]) Relevant Orders POCT A1C (Completed) POCT glucose manually resulted (Completed) CBC auto differential Comprehensive Metabolic Panel Lipid Panel, Standard TSH W/Reflex to FT4 Albumin, Random Urine W/Creatinine Hyperlipidemia associated with type 2 diabetes mellitus (CMS/HCC) ([facility]) Severe obesity ([facility]) - Primary Other Visit Diagnoses Dietary counseling Exercise counseling documented in this encounter Miscellaneous Notes * Assessment & Plan Note - Mau Pedersen MD - 05/13/2024 11:52 PM ESTAssociated Problem(s): Primary hypertension Repeated found 135/76, keep low sodium diet, keep bp log, follow up in 3 months, target <130/80 documented in this encounter Plan of Treatment Scheduled Orders Name Type Priority Associated Diagnoses Orde r Schedule CBC auto differential Lab Routine Type 2 diabetes mellitus without complication, without long-term current use of insulin ([facility]/HCC) Expected: 05/13/2024 (Approximate), Expires: 05/13/2025 Comprehensive Metabolic Panel Lab Routine Type 2 diabetes mellitus without complication, without long-term current use of insulin ([facility]) Expected: 05/13/2024 (Approximate), Expires: 05/13/2025 Lipid Panel, Standard Lab Routine Type 2 diabetes mellitus without complication, without long-term current use of insulin ([facility]) Expected: 05/13/2024 (Approximate), Expires: 05/13/2025 TSH W/Reflex to FT4 Lab Routine Type 2 diabetes mellitus without complication, without long-term current use of insulin ([facility]) Expected: 05/13/2024 (Approximate), Expires: 05/13/2025 Albumin, Random Urine W/Creatinine Lab Routine Type 2 diabetes mellitus without complication, without long-term current use of insulin ([facility]) Expected: 05/13/2024 (Approximate), Expires: 05/13/2025 documented as of this encounter Procedures Procedure Name Priority Date/Time Associated Diagnosis Comments POCT GLYCATED HEMOGLOBIN, TOTAL Routine 05/12/2024 4:00 PM EST Type 2 diabetes mellitus without complication, without long-term current use of insulin ([facility]) POCT GLUCOSE Routine 05/12/2024 3:59 PM EST Type 2 diabetes mellitus without complication, without long-term current use of insulin ([facility]) documented in this encounter Results * (ABNORMAL) POCT A1C (05/12/2024 4:00 PM EST) Hemoglobin A1C 7.0(A) 4.0 - 6.0 % QC Media Lot # Comment:[id number] Lot# Expiration Date Comment:01/24/2026 Blood 05/12/2024 4:00 PM EST Mau Pedersen MD POINT OF CARE TEST ENTER/EDIT ORDERABLES Final Result * (ABNORMAL) POCT glucose manually resulted (05/12/2024 3:59 PM EST) Glucose Blood, POC 168 60 - 200 mg/dL QC Media Lot # Comment:[id number] Lot# Expiration Date Comment:07/15/2024 Blood Capillary blood specimen / Unknown 05/12/2024 3:59 PM EST Mau Pedersen MD POINT OF CARE TEST ENTER/EDIT ORDERABLES Final Result documented in this encounter Visit Diagnoses Diagnosis Severe obesity (CMS/HCC)- Primary Morbid obesity Type 2 diabetes mellitus without complication, without long-term current use of insulin ([facility]) Dietary counseling Dietary surveillance and counseling Exercise counseling Hyperlipidemia associated with type 2 diabetes mellitus (CMS/HCC) ([facility]) Primary hypertension Unspecified essential hypertension documented in this encounter Additional Health Concerns Assessment Noted Time PHQ-9 Depression Total Score: 2 06/14/19 24 9:41 AM EST documented as of this encounter Care Teams Astrophysics Professor Relationship Specialty Start Date End Date Mau Owens MD [address] [place] [address] PCP - General Internal Medicine 09/03/19 documented as of this encounter
--- OUTSIDE RECORDS SUMMARY | 2024-06-09 13:48 | XMS_ITS | Encounter Summary ---
Author Organization [employer] Address [address] [facility] 7t [place] [address] Care Team Providers Care Bat Person Name Role Phone Mau Owens MD Primary Care Prov ider Reason for Visit * Reason Comments Med Refill Encounter Details Date Type Department Care Team ([facility] st Contact Info) Description 06/01/2024 Refill [facility] CHC MED & PEDS [address] [place], [place] [phone] Mau Owens MD [address] [place] [address] Neuropathy Social History Tobacco Use Types Packs/Day [...] documented as of this encounter Care Teams Bat Person Relationship Specialty Start Date End Date Mau Owens MD [address] [place] [id number] PCP - General Internal Medicine 09/03/19 documented as of this encounter
--- OUTSIDE RECORDS SUMMARY | 2024-06-09 13:48 | XMS_ITS | Encounter Summary ---
Author Organization [employer] Address [address] [facility] 7t [place] [address] Care Team Providers Care Basting Machine Operator Name Role Phone Mau Owens MD Primary Care Prov ider Reason for Visit * Reason Comments Med Refill Encounter Details Date Type Department Care Team ([facility] Contact Info) Description 01/25/2024 Refill [facility] CHC MED & PEDS [address] [place], [place] [phone] Mau Owens MD [address] [place] [address] Neuropathy Social History Tobacco Use Types Packs/Day [...] documented as of this encounter Care Teams Basting Machine Operator Relationship Specialty Start Date End Date Mau Owens MD [address] [place] [id number] PCP - General Internal Medicine 09/03/19 documented as of this encounter
--- OUTSIDE RECORDS SUMMARY | 2024-06-09 13:48 | XMS_ITS | Clinical Summary ---
Author Organization [facility] Address [address] [facility] [address] [place] [address] Care Team Providers Care Commercial Real Estate Associate Name Role Phone Mau Owens MD Primary Care Prov ider Allergies Active Allergy Reactions Criticality Noted Date Comments Cephalexin Hives 05/17/2022 Penicillins Hives 05/17/2022 Medications * This document contains information received from the source organization and may not represent a complete record from that organization. Blood Pressure kit 1 kit in the morning. 1 kit 08/29/19 23 Active OneTouch Verio test strip 1 each by Other route 3 times daily. 100 each 11 09/01/19 23 Active Clotrimazole Anti-Fungal 1 % cream APPLY TO AFFECTED AREA(S) AND SURROUNDING AREA(S) TWICE DAILY IN THE MORNING AND EVENING 180 g 3 09/14/19 23 Active lidocaine (Lidoderm) 5 % patch Apply 1 patch topically in the morning. Remove & discard patch within 12 hours or as directed by MD. 30 patch 01/31/20 23 Active lidocaine (Xylocaine) 5 % ointment APPLY SPARINGLY TO THE AFFECTED AREA(s) THREE TIMES DAILY 177.2 g 3 04/30/19 24 Active amitriptyline (Elavil) 50 MG tablet Take 1 tablet (50 mg) by mouth at bedtime. 30 tablet 11 09/12/19 24 Active aspirin (Aspirin Adult Low Strength) 81 MG EC tabletIndicatio ns:Type 2 diabetes mellitus with diabetic polyneuropathy, without long-term current use of insulin ([facility]/HCC),Prima ry hypertension Take 1 tablet (81 mg) by mouth Once per day. 90 tablet 3 09/12/19 24 025 Active atorvastatin (Lipitor) 20 MG tablet Take 1 tablet (20 mg) by mouth Once per day. 90 tablet 3 09/12/19 24 025 Active empagliflozin (Jardiance) 25 MGIndications:T ype 2 diabetes mellitus with diabetic polyneuropathy, without long-term current use of insulin (CMS/HCC) Take 1 tablet (25 mg) by mouth Once per day. 90 tablet 3 09/12/19 24 025 Active losartan-hydroC HLOROthiazide (Hyzaar) 100-25 MG tabletIndicatio ns:Primary hypertension Take 1 tablet by mouth Once per day. 90 tablet 3 09/12/19 24 025 Active metFORMIN, OSM, (Fortamet) 1000 MG 24 hr tabletIndicatio ns:Type 2 diabetes mellitus without complication, without long-term current use of insulin (CMS/HCC) Take 1 tablet (1,000 mg) by mouth with breakfast and with evening meal. Do not crush, chew, or split. 180 tablet 3 09/12/19 24 025 Active omeprazole (PriLOSEC) [address] capsuleIndicati ons:Gastroesoph ageal reflux disease without esophagitis Take 1 capsule (20 mg) by mouth before breakfast. Do not crush or chew. 90 capsule 3 09/12/19 24 025 Active hydrOXYzine HCl (Atarax) 25 MG tablet TAKE 1 TABLET BY MOUTH EVERY 8 HOURS IF NEEDED FOR ANXIETY 90 tablet 3 02/08/20 24 Active triamcinolone (Kenalog) 0.1 % cream APPLY TOPICALLY TO AFFECTED AREA(s) TWICE DAILY IN THE MORNING AND AT BEDTIME NEEDED 30 g 5 03/14/20 24 Active FeroSul 325 (65 Fe) MG tabletIndicatio ns:Iron deficiency anemia due to chronic blood loss TAKE ONE TABLET DAILY 90 tablet 04/08/20 24 Active pregabalin (Lyrica) 50 MG capsuleIndicati ons:Neuropathy TAKE ONE CAPSULE BY MOUTH THREE TIMES DAILY 90 capsule 2 06/04/19 25 Active pregabalin (Lyrica) 50 MG capsuleIndicati ons:Neuropathy TAKE 1 CAPSULE BY MOUTH THREE TIMES A DAY 90 capsule 2 02/08/20 24 025 Discontinued Active Problems Problem Noted Date Diagnosed Date Severe obesity 05/13/2024 Hyponatremia 01/07/2024 Assessment & Plan (01/07/2024 11:45 AM EDT): Reviewed and updated immunization records, pt declined. Atypical chest pain 01/07/2024 Assessment & Plan (01/07/2024 11:46 AM EDT): Ordering Stress test and lab work for further evaluation. If Sx should return, follow up with ED. Hyperlipidemia associated wi th type 2 diabetes mellitus (CMS/HCC) 06/14/2023 Assessment & Plan (12/05/2023 10:43 PM EDT): On atorvastatin, last ldl at target, keep low cholesterol diet, increase vegetable and fish, avoid fried food Assessment & Plan (09/12/2023 9:58 AM EDT): Will order new labs for guidance of therapy Assessment & Plan (06/14/2023 10:44 AM EST): On metformin and jardiance, last A1c from 02/2023 was 6.8% enciuraged to keep low carb/no sugar diet, will follow up in 3 months Eye exam due in september Anxiety 01/30/2023 Assessment & Plan (03/27/2023 1:49 PM EST): Patient followed by therapist, she has hydroxyzine as needed, no suicidal/homicidal ideas, her main stressor are family related issues Assessment & Plan (01/30/2023 4:31 PM EDT): Patient undergoing through a family member situation, she refers is constantly under stress/panic/anxiety, no suicidal/homicidal, will order hydroxyzine and will refer to therapist Encounter for screening mamm ogram for malignant neoplasm of breast 06/22/2022 Primary hypertension 05/17/2022 Assessment & Plan (05/13/2024 11:52 PM EST): Repeated found 135/76, keep low sodium diet, keep bp log, follow up in 3 months, target <130/80 Assessment & Plan (12/05/2023 10:42 PM EDT): Controlled, no changes will be made, keep low sodium diet, keep bp log, follow up in 4 months Assessment & Plan (09/12/2023 9:56 AM EDT): Controlled, on losartan/hydrochlorothiazide, continue low sodium diet and exercise as tolerated Assessment & Plan (06/14/2023 10:32 AM EST): Not at target on today evaluation, she refers has not been monitoring her bp for the past 2-3 weeks, discussed importance of bp log, target <130/80, will follow up in 3 months, if bp above target call back Assessment & Plan (03/27/2023 1:49 PM EST): Controlled, continue same treatment, lab results were discussed Assessment & Plan (01/30/2023 4:28 PM EDT): Within target, 131/86, reinforced low sodium diet and exercise as tolerated, no changes will be made, new labs will be ordered Assessment & Plan (11/10/2022 11:38 AM EDT): Controlled, reinforced low sodium diet and exercise as tolerated, continue Hyzaar, daily bp monitoring, new labs will be ordered Assessment & Plan (08/28/2022 3:10 PM EDT): Controlled, but bp monitor broke 2 weeks ago, refers beofre they were below 130/80, will order new monitor f/up in 3 months Assessment & Plan (07/03/2022 2:04 PM EDT): Controlled with change in treatment, currently on losartan/hctz 100/25, reinforced importance of diet and exercise as tolerated. Ranges from 135-100/65-75, follow up in 3 months Assessment & Plan (06/22/2022 2:26 PM EDT): On losartan/HCTZ, will order new labs for guidance of therapy and will follow up in office. Assessment & Plan (05/17/2022 12:19 PM EST): Not at target, will increase losartan/hctz to 100/25, reinforced importance of low sodium diet and exercise as tolerated, will follow up in 1 month Type 2 diabetes mellitus wit hout complication, without long-term current use of insulin 05/17/2022 Assessment & Plan (12/05/2023 10:44 PM EDT): On metformin and jardiance, keep low carb/no sugar diet, follow up in 3 months, last A1c was at target Assessment & Plan (09/12/2023 10:00 AM EDT): Controlled, A1c 6.5%, continue current treatment Eye exam due in September Foot examination done today was unremarkable Assessment & Plan (03/27/2023 1:50 PM EST): A1c 6.8%, continue same treatment, will follow up in 6 months Eye exam done in September Assessment & Plan (01/30/2023 4:28 PM EDT): Ranges from 96-138, no episode of hypoglycemia reported, continue same treatment Assessment & Plan (11/10/2022 11:44 AM EDT): Ranges from 99-139, no episode of hypoglycemia, continue metformin/jardiance, will order new labs for guidance of therapy Eye exam done on September 2022 Assessment & Plan (08/28/2022 3:11 PM EDT): No reported hypoglycemia, ranges in the 100's to 120's, reinforced importance of diet and exercise as tolerated, follow up in 3 months Assessment & Plan (07/03/2022 2:06 PM EDT): Continue metformin and empagliflozin, refers lowest result 86, highest 139 while fastin, target a1c <7.0%, diet and exercise reinforced Eye exam scheduled ffor July 12 Assessment & Plan (06/22/2022 2:26 PM EDT): Patient on jardiance and metformin, will order new labs for guidance of therapy, will refer to optometry, and will follow up in office Assessment & Plan (05/17/2022 12:20 PM EST): Controlled, no chnages will be made, reinforced low carb/no sugar diet Screening for colon cancer 05/17/2022 Assessment & Plan (12/05/2023 10:45 PM EDT): Will place new referral Assessment & Plan (05/17/2022 12:20 PM EST): Will refer for screening colonoscopy Encounters Date Type Department Care Team Description 06/01/2024 Refill [facility] [address] [place] [address] Mau Owens MD Neuropathy 05/12/2024 3:45 PM EST Office Visit [facility] [address] [place] [address] Mau Owens MD Severe obesity (CMS/HCC) (Primary Dx); Type 2 diabetes mellitus without complication, without long-term current use of insulin (CMS/HCC); Dietary counseling; Exercise counseling; Hyperlipidemia associated with type 2 diabetes mellitus (CMS/HCC) (CMS/HCC); Primary hypertension 05/12/2024 Travel 05/05/2024 Travel 04/22/2024 Telephone [facility] [address] [place] [address] Mau Owens MD Chart Prep 04/07/2024 Travel 04/03/2024 Refill [facility] [address] [place] [address] Mau Owens MD Iron deficiency anemia due to chronic blood loss 03/13/2024 Refill [facility] [address] [place] [address] Mau Owens MD from Last 3 Months Immunizations Name Administration Dates Next Due PPD Test 06/24/2014 Pneumococcal Conjugate PCV 20 05/17/2022 Tdap 02/04/2007 Zoster, Recombinant 06/16/2022 Social History Tobacco Use Types Packs/Day Years Used Date Smoking Tobacco: Former Cigarettes 1 30 1 960 - 1989 Smokeless Tobacco: Never Tobacco Cessation:Counseling Given: Not Answered Alcohol Use Standard Drinks/Week Comments Never 0 [...] Orientation Straight 01/08/2024 10 :16 AM EDT Last Filed Vital Signs Vital Sign Reading [...] Mass Index 44.2 05/12/2024 3:58 PM EST Plan of Treatment Health Maintenance Due Date Last Done Comments CT Colonography 1948 Colonoscopy 1948 Colorectal Cancer Screening 1948 FIT DNA/Cologuard 1948 FIT 1948 FOBT 1948 Sigmoidoscopy 1948 Eye Exam 1958 Alcohol/Substance Use Screening 1960 DTaP/Tdap/Td Vaccines (2 - Td or Tdap) 02/04/2017 02/04/2007 Zoster Vaccines (2 of 2) 08/11/2022 06/16/2022 Diabetes: Urine Protein Screening 05/17/2023 05/17/2022, 01/29/2020 RSV Patients and Patients Aged 60 years or older (1 - 1-dose 75+ series) 09/04/2023 COVID-19 Vaccine (2023- season) 2023 06/13/2021, 09/01/2020, 08/04/2020 Influenza Vaccine (#1) 2023 Depression Screening 06/13/2024 06/14/2023, 06/14/19 24 SDOH Screening 06/13/2024 06/14/2023 Diabetes: Hemoglobin A1C 08/09/2024 025, 09/12/2023, 02/20/2023, Additional history exists Diabetes: Foot Exam 09/11/2024 09/12/2023, 09/12/2023, 09/12/2023, Additional history exists Lipid Panel 09/11/2024 09/12/2023, 02/07, 05/08/2022, Additional history exists Tobacco Screening 01/06/2025 01/07/2024 Pneumococcal Vaccine: 50+ Years Completed 05/17/2022 Hepatitis C Screening Completed 02/20/2023 HIB Vaccines Aged Out No longer eligi ble based on patient's age to complete this topic HPV Vaccines Aged Out No longer eligi ble based on patient's age to complete this topic Hepatitis A Vaccines Aged Out No long er eligible based on patient's age to complete this topic Hepatitis B Vaccines Aged Out No long er eligible based on patient's age to complete this topic IPV Vaccines Aged Out No longer eligi ble based on patient's age to complete this topic Meningococcal Vaccine Aged Out No john jocelynn eligible based on patient's age to complete this topic RSV under 20 months Aged Out No longe r eligible based on patient's age to complete this topic Rotavirus Vaccines Aged Out No longer eligible based on patient's age to complete this topic Procedures Procedure Name Priority Date/Time Associated Diagnosis Comments POCT GLYCATED HEMOGLOBIN, TOTAL Routine 05/12/2024 4:00 PM EST Type 2 diabetes mellitus without complication, without long-term current use of insulin (CMS/HCC) POCT GLUCOSE Routine 05/12/2024 3:59 PM EST Type 2 diabetes mellitus without complication, without long-term current use of insulin (CMS/HCC) LIPID PANEL, STANDARD Routine 09/12/2023 10:19 AM EDT Type 2 diabetes mellitus without complication, without long-term current use of insulin (CMS/HCC) HEPATITIS C AB W/REFL TO HCV RNA, QN, PCR Routine 02/20/2023 9:13 AM EST Type 2 diabetes mellitus without complication, without long-term current use of insulin (CMS/HCC) ALBUMIN, RANDOM URINE W/CREATININE Routine 05/17/2022 7:40 AM EST from Last 3 Months or Most Recently Relevant to Health Maintenance Results * (ABNORMAL) POCT A1C (05/12/2024 4:00 PM EST) Hemoglobin A1C 7.0(A) 4.0 - 6.0 % QC Media Lot # Comment:[id number] Lot# Expiration Date Comment:01/24/2026 Blood 05/12/2024 4:00 PM EST Mau Pedersen MD POINT OF CARE TEST ENTER/EDIT ORDERABLES Final Result * (ABNORMAL) POCT glucose manually resulted (05/12/2024 3:59 PM EST) Pathologist [facility] Glucose Blood, POC 168 60 - 200 mg/dL QC Media Lot # Comment:[id number] Lot# Expiration Date Comment:07/15/2024 Blood Capillary blood specimen / Unknown 05/12/2024 3:59 PM EST Mau Pedersen MD POINT OF CARE TEST ENTER/EDIT ORDERABLES Final Result * (ABNORMAL) Lipid Panel, Standard (09/12/2023 10:19 AM EDT) [facility] Triglycerides 134 <150 mg/dL [facility] Comment:Desirable Triglyceri de: less than 150 mg/dLBorderline High Triglyceride 150-199 mg/dLHigh Triglyceride: 200-499 mg/dLVery High Triglyceride: greater than or equal to 5OO mg/dL Cholesterol 99 <200 mg/dL [facility] Comment:Desirable Cholestero l: less than 200 mg/dLBorderline High Cholesterol: 200-239 mg/dLHigh Cholesterol: greater than 239 mg/dL LDL Cholesterol Calculated 36 <100 mg/dL [facility] Comment:Desirable LDL: less than 100 mg/dLNear Optimal/Above Optimal LDL: 110- 129 mg/dLBorderline High LDL: 130-159 mg/dLHigh LDL: 160-189 mg/dLVery High LDL: greater than or equal to 190 mg/dL HDL Cholesterol 37(L) >40 mg/dL [facility] Comment:Desirable HDL: great er than 40 mg/dL Note: This HDL assay may give artificially low results in patients with liver disease. Blood Venous blood specimen / Unknown 09/12/2023 10:19 AM EDT 09/12/2023 3:01 PM EDT Mau Pedersen MD LAB BLOOD ORDERABL ES Final Result [facility] [address] [place] [phone] * Hepatitis C Antibody with Reflex to HCV, RNA, Quantitative, Real-Time PCR (02/20/2023 9:13 AM EST) Hepatitis C Antibody Nonreactive Nonreactive [facility] Comment:Antibodies to HCV no t detected; does not exclude early acuteHCV infection. Blood Venous blood specimen / Unknown 02/20/2023 9:13 AM EST 02/20/2023 2:50 PM EST Mau Pedersen MD LAB BLOOD ORDERABL ES Final Result [facility] [address] [place] [address] [phone] * Albumin, Random Urine W/Creatinine (05/17/2022 7:40 AM EST) Creatinine, Random Urine 81 20 - 275 mg/dL [facility] Albumin, Urine <0.2 See Note: mg/dL [facility] Comment: Reference Range: Reference Range Not established Albumin/Creatinin e Ratio, Random Urine NOTE <30 mcg/mg creat [facility] Comment: NOTE: The urine albumin value is less than 0.2 mg/dL therefore we are unable to calculate excretion and/or creatinine ratio. The ADA defines abnormalities in albumin excretion as follows: Albuminuria Category ?Result (mcg/mg creatinine) Normal to Mildly increased ?? <30 Moderately increased ? 30-299 Severely increased ? > OR = 300 The ADA recommends that at least two of three specimens collected within a 3-6 month period be abnormal before considering a patient to be within a diagnostic category. 05/17/2022 7:40 AM EST 05/17/2022 8:33 AM EST Narrative [facility] - 05/17/2022 7:43 PM EST SPLIT 05/08/2022 FROM [id number] us Mau Pedersen MD LAB URINE ORDERABL ES Final Result [facility] [address] [facility] [place] [address] [facility] [address] , ([address]) [place] [phone] from Last 3 Months or Most Recently Relevant to Health Maintenance Insurance [facility] STANDARD [facility] DUAL COMPLETE Care Teams Commercial Real Estate Associate Relationship Specialty Start Date End Date Mau Owens MD [address] [place] [phone] PCP - General Internal Medicine 09/03/19
--- OUTSIDE RECORDS SUMMARY | 2024-06-09 13:48 | XMS_ITS | Encounter Summary ---
Author Organization [employer] Address [address] [facility] [address] [place] [address] Care Team Providers Care Entry Examiner Name Role Phone Mau Owens MD Primary Care Prov ider Reason for Visit * Reason Comments Med Refill Encounter Details Date Type Department Care Team ([facility] st Contact Info) Description 12/27/2022 Refill [facility] [address] [place], [place] [phone] Mau Owens MD [address] [place], [place] [phone] Neuropathy Social History Tobacco Use Types Packs/Day [...] documented as of this encounter Care Teams Entry Examiner Relationship Specialty Start Date End Date Mau Owens MD [address] [place], [place] [phone] PCP - General Internal Medicine 09/03/19 documented as of this encounter
--- OUTSIDE RECORDS SUMMARY | 2024-06-09 13:48 | XMS_ITS | Encounter Summary ---
Author Organization [employer] Address [address] [place] [address] Care Team Providers Care Repossessor Name Role Phone Mau Owens MD Primary Care Prov ider Reason for Visit * Reason Onset Date Comments status on med 05/10/2022 Encounter Details Date Type Department Care Team ([facility] st Contact Info) Description 05/10/[address] [facility] [address] [place] [address] Mau Owens MD [address] [place] [address] status on med Social History Tobacco Use Types Packs/Day Years Used Date Smoking Tobacco: Never Assessed Comments Unknown Sex and Gender Information Value Date Recorded Sex Assigned at Female 02/06/2022 10:14 AM EDT Legal Sex Female 10:14 AM EDT Gender Identity Female 02/06/2022 10:14 AM EDT Sexual Orientation Straight 01/08/2024 10 :16 AM EDT documented as of this encounter Miscellaneous Notes * Telephone Encounter - Aminata Gonzáles - 05/10/2022 10:10 AM EST TC from Annie Daughter of pt requesting a status on medication Metformin. Pt 3 days without meds. PCP Dr. Montanez documented in this encounter Plan of Treatment Not on file documented as of this encounter Visit Diagnoses Diagnosis Type 2 diabetes mellitus without complication, without long-term current use of insulin ([facility]/HCC)- Primary documented in this encounter Care Teams Repossessor Relationship Specialty Start Date End Date Mau Owens MD [address] [place] [phone] PCP - General Internal Medicine 09/03/19 documented as of this encounter
[2024-06-09 14:22] LABS: MANUAL DIFF FLAG NO
[2024-06-09 14:27] LABS: Basophils Percent Auto 0.5 % (0-2); Eosinophils Absolute Auto 0.2 X10*3/uL (0.0-0.4); Eosinophils Percent Auto 3.1 % (0-4); Hematocrit 42.2 % (37.0-47.0); Hemoglobin 12.9 g/dl (12.0-16.0); Imm Gran Abs Auto 0.02 X10*3/uL (0.00-0.03); Imm Gran Pct Auto 0.3 % (0.0-0.4); Lymphocytes Absolute Auto 2.2 X10*3/uL (1.2-4.9); Lymphocytes Percent Auto 34.5 % (20-40); Mean Corpuscular HGB Conc 30.6 g/dl (31.0-35.0); Mean Corpuscular Hemoglobin 24.8 pg (27.0-33.0); Mean Platelet Volume 11.7 fL (9.4-12.3); Monocytes Absolute Auto 0.7 X10*3/uL (0.1-1.2); Monocytes Percent Auto 10.5 % (2-11); Neutrophils Absolute Auto 3.3 x10*3/uL (2.0-8.3); Neutrophils Percent Auto 51.1 % (45-73); Platelet Count 186 X10*3/uL (160-400); Red Blood Count 5.21 X10*6/uL (4.20-5.50); White Blood Count 6.4 X10*3/uL (4.8-10.8)
[2024-06-09 15:13] LABS: Alanine Aminotransferase 18 U/L (0-31); Albumin Level 3.9 g/dL (3.5-5.0); Alkaline Phosphatase 76 U/L (39-117); Anion Gap 13 (12-20); Aspartate Amino Transferase 24 U/L (5-31); Bilirubin Total 0.6 mg/dL (0.0-1.0); Blood Urea Nitrogen 18 mg/dL (9-16); Calcium 9.1 mg/dL (8.4-10.2); Carbon Dioxide 29 mmol/L (22-29); Chloride 103 mmol/L (96-108); Cholesterol 96 mg/dL (<200); Estimated Glomerular Filt Rate 57; Glucose Random 136 mg/dL (60-115); HDL Cholesterol 34 mg/dL (>40); LDL Cholesterol Calculated 39 mg/dL (<100); Potassium 4.3 mmol/L (3.3-5.1); Sodium 141 mmol/L (135-145); Total Protein 7.8 g/dL (6.5-8.0); Triglycerides 115 mg/dL (<150)
[2024-06-09 15:34] LABS: TSH reflex Free T4 1.66 uIU/mL (0.32-4.0)
== END 2024-06-09 11:34 | disposition home or self-care (01) ==
LOC: HO.CHCLDS 11:33
PROVIDERS: Visit Provider Internal Medicine
DX: E11.9 Type 2 diabetes mellitus without complications (principal)
CPT/HCPCS: 36415; 80053; 80061; 84443; 85025